=== PATIENT | female | born 1970 | race African-American/Black ===

== ENCOUNTER 2021-03-06 15:19 | Emergency (ER) | payer OTHER ==
[2021-03-06 15:29] VITALS: BP 126/83; PULSE 85; TEMP 98.6; BMI 20.9
[2021-03-06] MEDS ORDERED: ACETAMINOPHEN 325 MG TABLET (FP) PO ONE (15:54)
== END 2021-03-06 16:38 | disposition home or self-care (01) ==
LOC: JER 15:19
DX: R55 Syncope and collapse (principal)
CPT/HCPCS: 99283-25